=== PATIENT | male | born 1975 | race Two or more races ===

== ENCOUNTER 2024-03-18 17:59 | Emergency (ER) | payer OTHER ==
[~2024-03-18] VITALS: Ht 180.3 cm; Wt 99.8 kg
[2024-03-18] MEDS ORDERED: TALTZ SYRI20 MG/0.25 SUBCUTANEO (18:20)
[2024-03-18] MEDS ORDERED: ORPHENADRINE CITRATE 30 MG/ML AMPUL IM STA (20:06)
[2024-03-18] MEDS ORDERED: KETOROLAC TROMETHAMINE 30 MG VIAL IM STA (20:06)
== END 2024-03-18 21:11 | disposition home or self-care (01) ==
LOC: ER 18:01
DX: M54.50 Low back pain, unspecified (principal)